=== PATIENT | male | born 2000 | race Caucasian/White ===

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

== ENCOUNTER 2019-01-23 16:34 | Emergency (ER) | payer MEDICAID ==
[~2019-01-23] VITALS: Ht 182.9 cm; Wt 90.9 kg
[~2019-01-23 16:34] MED LIST changes: +PEN-VEE K500 MG PO
[2019-01-23 16:44] VITALS: BP 134/65; TEMP 98.4
[2019-01-23 17:26] VITALS: PULSE 87
== END 2019-01-23 17:28 | disposition home or self-care (01) ==
LOC: COL.ER 16:34
DX: M54.42 Lumbago with sciatica, left side (principal)

== ENCOUNTER 2019-01-26 19:29 | Emergency (ER) | payer MEDICAID ==
[~2019-01-26] VITALS: Ht 185.4 cm; Wt 130.5 kg
[2019-01-26] MEDS ORDERED: SAPHRIS2.5 MG SL (19:36)
[2019-01-26] MEDS ORDERED: SAPHRIS10 MG SL (19:36)
[2019-01-26] MEDS ORDERED: ZYPREXA 5MG5 MG PO (19:37)
[2019-01-26] MEDS ORDERED: PROTONIX 40MG T40 MG PO (19:37)
[2019-01-26] MEDS ORDERED: INTUNIV3 MG PO (19:37)
[2019-01-26 19:38] VITALS: BP 120/78; TEMP 98.4
[2019-01-26] MEDS ORDERED: VISTARIL100 MG PO (19:38)
[2019-01-26] MEDS ORDERED: ATIVAN 1MG T1 MG/TAB PO (20:05)
[2019-01-26 20:17] VITALS: PULSE 79
== END 2019-01-26 20:11 | disposition home or self-care (01) ==
LOC: COL.ER 19:29
DX: F41.9 Anxiety disorder, unspecified (principal); R59.9 Enlarged lymph nodes, unspecified; F31.9 Bipolar disorder, unspecified; F84.0 Autistic disorder; F25.9 Schizoaffective disorder, unspecified; Z96.22 Myringotomy tube(s) status

== ENCOUNTER 2019-05-12 14:14 | Emergency (ER) | payer SELFPAY ==
[~2019-05-12] VITALS: Ht 172.7 cm; Wt 122.7 kg
[~2019-05-12 14:14] MED LIST changes: +ATIVAN 1MG T1 MG/TAB PO; +INTUNIV3 MG PO; +PROTONIX 40MG T40 MG PO; +SAPHRIS10 MG SL; +SAPHRIS2.5 MG SL; +VISTARIL100 MG PO; +ZYPREXA 5MG5 MG PO
[2019-05-12 14:26] VITALS: BP 125/83; TEMP 99.1
[2019-05-12 15:04] LABS: BASO # 0.1 (0.0-0.2); BASO % 0.7 % (0.0-2.0); EOS # 0.2 (0.0-0.7); EOS % 2.1 % (0-4.0); GRAN # 7.3 (1.4-6.5); HEMATOCRIT 46.1 % (36.0-47.0); HEMOGLOBIN 14.8 g/dl (12.5-16.1); LYMPH # 2.6 (1.2-3.4); LYMPH % 23.2 % (20.0-51.0); MEAN CELL VOLUME 87 fl (80.0-95.0); MEAN CORPUSCULAR HEMOGLOBIN 28 pg (26.0-32.0); MEAN CORPUSCULAR HGB CONC 32 g/dl (33.0-37.0); MEAN PLATELET VOLUME 10.9 fl (7.4-10.4); MONO # 0.8 (0.1-0.6); MONO % 7.6 % (1.7-9.3); PLATELET COUNT 323 K/mm3 (130-400); RED BLOOD COUNT 5.33 M/mm3 (4.20-5.60); REDCELL DISTRIBUTION WIDTH-CV 13.7 % (11.5-14.5)
[2019-05-12 15:08] LABS: COLLECTION METHOD CLEAN CATCH
[2019-05-12 15:17] LABS: MUCOUS Present /lpf; PH 5 (5-8); SQUAMOUS EPITHELIAL 0-2 /hpf; URINE APPEARANCE Clear; URINE BACTERIA None Seen /hpf; URINE BILIRUBIN Negative (NEGATIVE); URINE BLOOD Negative (NEGATIVE); URINE COLOR Yellow; URINE GLUCOSE Negative (NEGATIVE); URINE KETONE Negative (NEGATIVE); URINE LEUKOCYTE ESTERASE Negative (NEGATIVE); URINE NITRATE Negative (NEGATIVE); URINE PROTEIN(semi-quant) Negative (NEGATIVE); URINE RBC 0-2 /hpf; URINE UROBILINOGEN Negative (NEGATIVE)
[2019-05-12 15:23] LABS: BILIRUBIN,TOTAL 0.5 mg/dL (0.0-1.0); C-REACTIVE PROTEIN 0.7 mg/dL (0.0-0.9); CALCIUM 10.2 mg/dL (8.4-10.2); CREATININE, serum 1.2 (0.66-1.25); TOTAL PROTEIN 8.2 gm/dL (6.4-8.2)
[2019-05-12] MEDS ORDERED: ZOFRAN ODT4 MG PO (16:01)
[2019-05-12 16:15] VITALS: PULSE 92
== END 2019-05-12 16:20 | disposition home or self-care (01) ==
LOC: COL.ER 14:14
PROVIDERS: Physician Assistant
DX: R10.12 Left upper quadrant pain (principal); R11.2 Nausea with vomiting, unspecified; R19.7 Diarrhea, unspecified; F31.9 Bipolar disorder, unspecified; F17.210 Nicotine dependence, cigarettes, uncomplicated

== ENCOUNTER 2019-05-28 08:23 | Emergency (ER) | payer SELFPAY ==
[~2019-05-28] VITALS: Ht 182.9 cm; Wt 124.7 kg
[~2019-05-28 08:23] MED LIST changes: +ZOFRAN ODT4 MG PO
[2019-05-28 08:50] VITALS: BP 121/59; TEMP 99
[2019-05-28 09:41] LABS: COLLECTION METHOD CLEAN CATCH
[2019-05-28 09:50] LABS: MUCOUS Present /lpf; PH 5 (5-8); SQUAMOUS EPITHELIAL 0-2 /hpf; URINE APPEARANCE Hazy; URINE BACTERIA None Seen /hpf; URINE BILIRUBIN Negative (NEGATIVE); URINE BLOOD 3+ (NEGATIVE); URINE COLOR Yellow; URINE GLUCOSE Negative (NEGATIVE); URINE KETONE Negative (NEGATIVE); URINE LEUKOCYTE ESTERASE Negative (NEGATIVE); URINE NITRATE Negative (NEGATIVE); URINE PROTEIN(semi-quant) 1+ (NEGATIVE); URINE RBC 0-2 /hpf; URINE UROBILINOGEN Negative (NEGATIVE)
[2019-05-28 10:36] LABS: BASO # 0.1 (0.0-0.2); BASO % 0.6 % (0.0-2.0); EOS # 0.2 (0.0-0.7); EOS % 2.4 % (0-4.0); GRAN # 6.4 (1.4-6.5); GRAN % 66.4 % (42.2-75.2); HEMATOCRIT 46.2 % (36.0-47.0); HEMOGLOBIN 14.7 g/dl (12.5-16.1); LYMPH # 2.2 (1.2-3.4); LYMPH % 23.3 % (20.0-51.0); MEAN CELL VOLUME 87 fl (80.0-95.0); MEAN CORPUSCULAR HEMOGLOBIN 28 pg (26.0-32.0); MEAN CORPUSCULAR HGB CONC 32 g/dl (33.0-37.0); MONO # 0.7 (0.1-0.6); PLATELET COUNT 302 K/mm3 (130-400); RED BLOOD COUNT 5.34 M/mm3 (4.20-5.60); REDCELL DISTRIBUTION WIDTH-CV 13.6 % (11.5-14.5)
[2019-05-28 10:52] LABS: ALBUMIN 4.7 gm/dL (3.5-5.0); BILIRUBIN,TOTAL 0.5 mg/dL (0.0-1.0); C-REACTIVE PROTEIN 0.8 mg/dL (0.0-0.9); CALCIUM 9.7 mg/dL (8.4-10.2); CREATININE, serum 0.93 (0.66-1.25); POTASSIUM 3.9 mmol/L (3.4-5.0); TOTAL PROTEIN 7.9 gm/dL (6.4-8.2)
[2019-05-28 11:25] VITALS: PULSE 741
== END 2019-05-28 11:25 | disposition home or self-care (01) ==
LOC: COL.ER 08:23
PROVIDERS: Emergency Medicine; Nurse Practitioner
DX: R31.9 Hematuria, unspecified (principal); F90.9 Attention-deficit hyperactivity disorder, unspecified type; F31.9 Bipolar disorder, unspecified; F41.9 Anxiety disorder, unspecified; F17.210 Nicotine dependence, cigarettes, uncomplicated

== ENCOUNTER 2019-10-19 21:07 | Emergency (ER) | payer MEDICAID ==
[~2019-10-19] VITALS: Ht 182.9 cm; Wt 120.5 kg
[2019-10-19 21:15] VITALS: PULSE 115; TEMP 99.3
== END 2019-10-19 21:30 | disposition left against medical advice (07) ==
LOC: COL.ER 21:07
DX: R69 Illness, unspecified (principal)

== ENCOUNTER 2021-05-09 12:29 | Emergency (ER) | payer MEDICAID ==
[~2021-05-09] VITALS: Ht 182.9 cm; Wt 145.5 kg
[2021-05-09 14:00] VITALS: BP 138/68; PULSE 88; TEMP 98.7
== END 2021-05-09 14:00 | disposition home or self-care (01) ==
LOC: COL.ER 12:29
DX: B34.9 Viral infection, unspecified (principal); F31.9 Bipolar disorder, unspecified; F25.9 Schizoaffective disorder, unspecified; F84.0 Autistic disorder; F42.9 Obsessive-compulsive disorder, unspecified; Z20.822 Contact with and (suspected) exposure to COVID-19; Z79.899 Other long term (current) drug therapy

== ENCOUNTER 2021-09-23 06:38 | Emergency (ER) | payer MEDICAID ==
[~2021-09-23] VITALS: Ht 182.9 cm; Wt 113.6 kg
[2021-09-23 07:02] VITALS: BP 160/116; TEMP 99.8
[2021-09-23] MEDS ORDERED: AMOXICILLIN 50500 MG PO (07:42)
[2021-09-23 08:03] VITALS: PULSE 70
== END 2021-09-23 08:03 | disposition home or self-care (01) ==
LOC: COL.ER 06:38
DX: K04.7 Periapical abscess without sinus (principal); K02.9 Dental caries, unspecified; Z28.310 Unvaccinated for COVID-19

== ENCOUNTER 2022-05-13 20:01 | Emergency (ER) | payer MEDICAID ==
[~2022-05-13 20:01] MED LIST changes: +AMOXICILLIN 50500 MG PO
[2022-05-13 20:14] VITALS: TEMP 97.1
[2022-05-13 21:36] LABS: BASO # 0.1 K/mm3 (0.0-0.2); BASO % 0.4 % (0.0-2.0); EOS # 0.3 K/mm3 (0.0-0.7); EOS % 2.4 % (0.0-4.0); GRAN # 8.8 K/mm3 (1.4-6.5); GRAN % 67.1 % (42.2-75.2); HEMATOCRIT 42.6 % (42.0-52.0); HEMOGLOBIN 13.6 g/dl (13.5-18.0); LYMPH % 22.6 % (20.0-51.0); MEAN CELL VOLUME 83 fl (80.0-100.0); MEAN CORPUSCULAR HEMOGLOBIN 27 pg (27-31); MEAN CORPUSCULAR HGB CONC 32 g/dl (33.0-37.0); MEAN PLATELET VOLUME 10.5 fl (7.4-10.4); MONO # 0.9 K/mm3 (0.1-0.6); MONO % 7.1 % (1.7-9.3); PLATELET COUNT 384 K/mm3 (130-400); RED BLOOD COUNT 5.12 M/mm3 (4.20-5.60); REDCELL DISTRIBUTION WIDTH-CV 14.6 % (11.5-14.5)
[2022-05-13 21:54] LABS: ALBUMIN 3.8 gm/dL (3.5-5.0); BILIRUBIN,TOTAL 0.2 mg/dL (0.2-1.2); CALCIUM 10.4 mg/dL (8.4-10.2); CREATININE, serum 0.93 mg/dL (0.72-1.25); POTASSIUM 3.7 mmol/L (3.5-4.5); TOTAL PROTEIN 7.8 gm/dL (6.2-8.1)
[2022-05-14 00:06] VITALS: BP 138/72; PULSE 64
== END 2022-05-14 21:45 | disposition home or self-care (01) ==
LOC: COL.ER 20:01
PROVIDERS: Emergency Medicine
DX: T38.3X1A Poisoning by insulin and oral hypoglycemic [antidiabetic] drugs, accidental (unintentional), initial encounter (principal); T42.6X1A Poisoning by other antiepileptic and sedative-hypnotic drugs, accidental (unintentional), initial encounter; T44.6X1A Poisoning by alpha-adrenoreceptor antagonists, accidental (unintentional), initial encounter; T46.6X1A Poisoning by antihyperlipidemic and antiarteriosclerotic drugs, accidental (unintentional), initial encounter; D72.829 Elevated white blood cell count, unspecified; Z28.310 Unvaccinated for COVID-19

== ENCOUNTER 2023-04-14 19:46 | Emergency (ER) | payer MEDICAID ==
[~2023-04-14] VITALS: Ht 172.7 cm; Wt 113.6 kg
[2023-04-14 19:49] VITALS: BP 126/82; TEMP 98.2
[2023-04-15 00:08] VITALS: PULSE 81
== END 2023-04-15 00:08 | disposition home or self-care (01) ==
LOC: COL.ER 19:46
DX: S06.0XAA Concussion with loss of consciousness status unknown, initial encounter (principal); S00.83XA Contusion of other part of head, initial encounter; R40.2412 Glasgow coma scale score 13-15, at arrival to emergency department; F17.210 Nicotine dependence, cigarettes, uncomplicated; Y04.0XXA Assault by unarmed brawl or fight, initial encounter

== ENCOUNTER 2024-03-21 18:35 | Emergency (ER) | payer MEDICAID ==
[~2024-03-21] VITALS: Ht 185.4 cm; Wt 143.2 kg
[2024-03-21 18:42] VITALS: BP 130/83; TEMP 99.1
[2024-03-21 19:41] LABS: STREP A NEGATIVE
[2024-03-21 20:34] VITALS: PULSE 74
== END 2024-03-21 20:34 | disposition home or self-care (01) ==
LOC: COL.ER 18:35
PROVIDERS: Nurse Practitioner
DX: J06.9 Acute upper respiratory infection, unspecified (principal)